=== PATIENT | female | born 1975 | race Caucasian/White ===

== ENCOUNTER 2017-09-23 20:11 | Emergency (ER) | payer BC ==
[~2017-09-23] VITALS: Ht 167.6 cm; Wt 56.2 kg
--- OUTSIDE RECORDS SUMMARY | 2017-09-23 20:23 | External Medical Summary Rpt | CCD ---
Author Author [employer] Organization [employer] Address Unknown Phone Unavailable Purpose Continuity of Care Document - through 2016
--- OUTSIDE RECORDS SUMMARY | 2017-09-23 20:23 | External Medical Summary Rpt | CCD ---
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
--- OUTSIDE RECORDS SUMMARY | 2017-09-23 20:23 | External Medical Summary Rpt | CCD ---
Author Author , YESSENIA CHEN Address Unknown Phone [email or web address] Purpose Continuity of Care Document - through 2016
--- OUTSIDE RECORDS SUMMARY | 2017-09-23 20:23 | External Medical Summary Rpt | CCD ---
Author Author , YESSENIA CHEN Address Unknown Phone [email or web address] Purpose Continuity of Care Document - through 2016
--- OUTSIDE RECORDS SUMMARY | 2017-09-23 20:23 | External Medical Summary Rpt | CCD ---
Demographics Preferred Language Tajik Marital Status Unknown Holiness Affiliation Unknown Race Unknown Ethnic Group Unknown Author Author , APRIL CHEN Address Unknown Phone Immunization No patient found.
[2017-09-23] MEDS ORDERED: LYRICA 100 MG100 MG PO (20:44)
[2017-09-23] MEDS ORDERED: ESCITALOPRAM 2020 MG PO (20:44)
[2017-09-23] MEDS ORDERED: KLONOPIN1 M2 PO (20:44)
[2017-09-23] MEDS ORDERED: ABILIFY20 MG PO (20:45)
[2017-09-23] MEDS ORDERED: PHENERGAN25 M3 PO (20:45)
[2017-09-23 20:58] LABS: HEMOGLOBIN 13.2 g/dL (12.2-16.2); LYMPH # 2.1 K/mm3 (0.7-4.5); LYMPH % 14.5 % (10-50.0)
--- NOTE | 2017-09-23 21:11 | Emergency Room Report ---
History of Present Illness Time Seen by 2038 Presenting Problem in Triage Pt arrived:Wheelchair Presenting Problem:C/O SYNCOPE THIS AM. FAMILY FOUND HERE PASSED OUT THIS AM IN BATHROOM AND HELPED HER TO BED WHERE SHE STATES SHE HAS BEEN ALL DAY. FOUND NEAR POOL OF VOMIT. 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 NO NEURO DEFICITS NOTED. NOW C/O RIGHT ARM/HAND NUMBNESS. 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 N Clinical Suspician of Infection? N Mental Status: 1 - Regular (Normal Baseline) Sepsis Risk:Possible Sepsis Risk Have you (or family members/close friends) recently traveled outside the [place]? N If Yes, where/when: Have you had exposure to infectious disease within the past month? N TB? Other? Specify: Source patient, RN notes reviewed, family, old records Exam Limitations no limitations Comment this wf is visiting with family and had syncopal episode this am as she was found on floor beside toilet with no known sz and she nor family able to give specifics - she has armando but no other neuro sx and reports having mood disorder and chronic back pain Cardiac Chest Pain Chest pain indicative of cardiac No Timing/Duration this evening Severity moderate ALLERGIES Coded Allergies: SEAFOOD (F) (09/23/17) iodine (09/23/17) acetaminophen (From LORTAB) (HEADACHE 09/23/17) hydrocodone (From LORTAB) (HEADACHE 09/23/17) morphine (HEADACHE 09/23/17) Home Medications Reported Medications Pregabalin (Lyrica 100Mg) 100 MG PO Q8 #90 Escitalopram Oxalate (Escitalopram 20MG) 20 MG PO DAILY #30 Clonazepam (Klonopin) 1 MG PO TID #90 PROMETHAZINE HCL (Phenergan 25MG Tab (Geq)) 25 MG PO TID #50 Aripiprazole (Abilify) 20 MG PO DAILY #30 History Medical History General CAD? No Angina: No FL: No Hypertension? No Hyperlipidemia? Yes CHF? No DVT? No PE? No COPD? No Asthma? No Anemia? No GERD? Yes Gastric ulcers? Yes GI Bleed? Yes Hernia? No Thyroid Problems? Yes Hypothyroidism? No CVA? No Seizures? No Diabetes? No Renal Insuffiency? No End Stage Renal Disease? No UTI? No Stones? No BPH? No GB Disease: No Nephritic Syndrome? No Asplenia? No Hepatitis? No Sickle Cell Disease? No Arthritis? No Migraines? No Cataracts? No Glaucoma? No MRSA? No HIV? No TB? No Anxiety? Yes Depression? Yes Cancer? No More? 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 Respiratory denies cough, denies shortness of breath, denies wheezing Cardiovascular see HPI, denies chest pain, denies palpitations, syncope Gastrointestinal denies abdominal pain, denies diarrhea, denies vomiting Genitourinary denies: dysuria, frequency, hesitancy, hematuria. Musculoskeletal denies back pain, denies joint pain, denies joint swelling, denies neck pain Skin denies rash Psychiatric/Neurological denies headache, denies seizure Physical Exam Vital Signs Vital Signs Date Time Temp Pulse Resp B/P Pulse O2 O2 Flow FiO2 Ox Delivery Rate 09/23 2324 85 20 97/59 90 09/237 99.9 96 20 105/82 93 09/23 2033 98.8 116 20 112/71 94 - WBC >12,000 or <4,000 or 10% bands? 2 or more SIRS Criteria Met? B/P:/ MAP:84 Creatinine >2.0? UA output<0.5ml/kg/hr for 2 hrs? Platelet count >100,000? Lactate >2.0mmol/1? INR >1.2 or PTT > than 60 sec? Evidence of Organ Dysfunction? Provider documented clinical suspician of infection? N Sepsis Criteria Count: 2 Sepsis Risk: Possible Sepsis Risk General Appearance no apparent distress Eye Exam - bilateral eye PERRL, bilateral eye EOMI Ear, Nose, Throat sinus pain/drainage, sl swelling and blister to rt facial area consistent with shearing effect but not shingles Neck non-tender Respiratory Status No: respiratory distress. Lung Sounds bilateral: lungs clear. 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 No Results/Orders Laboratory Tests 09/23/172049: Creatine Kinase 3464 H, CK-MB (CK-2) Rel Index 1.0, CK and CKMB Interp 36.3 *H, Troponin I < 0.02 09/23/172049: Sodium 138, Potassium 3.5, Chloride 101, Carbon Dioxide 30, BUN 13, Creatinine 1.0, Estimated Creat Clear 64, Estimated GFR (MDRD) 61, Glucose 115 H, Calcium 9.1, Total Bilirubin 0.3, AST 78 H, ALT 44, Alkaline Phosphatase 108, Total Protein 7.1, Albumin 3.7, Globulin 3.4 H, Albumin/Globulin Ratio 1.1, WBC 14.3 H, RBC 4.56, Hgb 13.2, Hct 39.1, MCV 85.8, RDW 13.4, Plt Count 201, MPV 7.3 L, Gran % 76.2, Gran # 10.9 H, Lymphocytes % 14.5, Monocytes % 7.6, Eosinophils % 1.5, Basophils % 0.2, Lymphocytes # 2.1, Monocytes # 1.1 H, Eosinophils # 0.2, Basophils # 0.0, PUBS MCHC 33.8, MCH 29.0 Current Medication Orders Sig/Luciano Start time Last Medication Dose Route Stop Time Status Admin Sodium Chloride 1,000 ML .Q1H1M 09/23 2145 DC 09/23 IV 09/23 Sodium Chloride 10 ML PRN PRN 09/23 2145 AC IV 11/11 2132 Sodium Chloride 1,000 ML .STK-MED ONE 09/23 2143 DC IV Sodium Chloride 10 ML PRN PRN 09/23 2100 AC IV 09/24 2047 Orders Procedure Date/time Status DIET-NOTHING BY MOUTH 09/24 B Active DRUG ABUSE SCREEN (TRIAGE) 09/[address] SINUS (MAX-FACIAL W/O CONT) 09/[address] SCAN REQ 09/23 2152 Complete URINALYSIS/COMPLETE 09/[address] SCAN REQ 09/23 2111 Active 12 LEAD EKG-BESSON (INITIAL) 09/23 2052 Active ELECTROCARDIOGRAM REQUEST 09/23 2052 Active CARDIAC ENZYMES 09/[address] CERVICAL SPINE W/O CONT. 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 of ischemic chgs XRAY/CT/US XRAY/CT/US CT head, C-spine, sinus CT interpretation by discussed w/radiologist Time results known: 2352 CT Results no fracture seen, abnormal (sinusitis) Departure Departure Time of Disposition 2343 Disposition Against Medical Advice Clinical Impression Primary Impression: Syncope Qualifiers: Syncope type: unspecified Qualified Code: R55 - Syncope and collapse Secondary Impressions: Rhabdomyolysis Qualifiers: Rhabdomyolysis type: traumatic Encounter type: initial encounter Qualified Code: T79.6XXA - Traumatic ischemia of muscle, initial encounter Sinusitis Qualifiers: Sinusitis location: pansinusitis Chronicity: unspecified Qualified Code: J32.4 - Chronic pansinusitis Condition STABLE Patient Instructions DI for Syncope in Adults (Fainting) Additional Instructions fluids and use meds and see pcp for follow up and also see ent for sinusitis disease Discharge Counseling Counseled pt/family regarding diagnosis, test results, medications/RX, follow up needs Prescriptions Current Visit Scripts CEPHALEXIN (Keflex 500MG Capsule) 500 MG PO Q8H #30 CAP ED Critical Care Critical Care No Comments discussed with pt and family but pt refused admit at [id number]
--- NOTE | 2017-09-23 22:58 | RADIOLOGY REPORT PS360 ---
CT HEAD W/O CONTRAST HISTORY: SYNCOPAL EPISODE WITH FALL ORDERING PHYSICIAN: Karely Lowe MD PATIENT AGE: 42 years COMPARISON: None TECHNIQUE: Axial images obtained without contrast. Brain and bone windows reviewed. FINDINGS: No midline shift, mass effect, intracranial hemorrhage, hydrocephalus, or extra-axial fluid collection is evident. The calvarium has an unremarkable appearance. No mastoid effusion. Air-fluid levels are present in the maxillary sinuses and there is moderate mucosal thickening of the ethmoid sinuses and near complete opacification of the left frontal sinus.. IMPRESSION: 1. No acute intracranial findings. 2. Sinusitis.
[2017-09-23 23:45] VITALS: BP 97/59
[2017-09-23] MEDS ORDERED: KEFLEX 500MG.500 MG PO (23:47)
--- NOTE | 2017-09-24 05:39 | RADIOLOGY REPORT PS360 ---
CT CERVICAL SPINE W/O CONT INDICATION: Neck pain, right arm pain, radicular pain SYNCOPAL EPISODE WITH FALL ORDERING PHYSICIAN: Karely Lowe MD PATIENT AGE: 42 years COMPARISON: None TECHNIQUE: Axial images are obtained without contrast. Sagittal and coronal reformatted images are reviewed as well. FINDINGS: No fracture or subluxation. There is straightening of the cervical lordosis which may be due to patient positioning or muscle spasm. There is incomplete fusion of the posterior arch of C1 as a normal variant. There is mild degenerative disc disease at C5-C6 with slight decrease in the disc space and minimal osteosclerosis of the endplates. No bony canal stenosis Biapical scarring is present in the lungs and there is gas in the esophagus which is nonspecific but could be seen with reflux or distal esophageal obstruction. Air-fluid levels are present in the maxillary sinuses. A small nodule is present in the left lobe of the thyroid gland with a small calcification. The nodule measures approximately 4 mm. IMPRESSION: 1. No acute fracture. 2. Straightening of cervical lordosis which may be due to patient positioning or muscle spasm with mild cervical spondylosis 3. Maxillary sinusitis
--- NOTE | 2017-09-24 05:59 | RADIOLOGY REPORT PS360 ---
CT SINUS (MAX-FACIAL W/O CONT) CLINICAL INDICATION: Facial pain, right-sided facial pain FACIAL ORDERING PHYSICIAN: Karely Lowe MD PATIENT AGE: 42 years COMPARISON: None TECHNIQUE:Axial, sagittal, and coronal images are generated and reviewed without contrast FINDINGS: There is near complete opacification of the left aspect of the frontal sinus and moderate opacification of bilateral ethmoid air cells. Bilateral air-fluid levels are present within the maxillary sinuses. No obvious fracture or dislocation. The sphenoid sinuses have minimal mucosal thickening of the left anteriorly. There is moderate rightward nasal septal deviation. The ostiomeatal units are occluded on both sides. There is some mild soft tissue swelling in the right zygomatic area. The orbits are unremarkable. 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 IMPRESSION: 1. No acute fracture. 2. Mild right facial soft tissue swelling 3. Paranasal sinusitis with air-fluid levels in the maxillary sinuses and near complete opacification of the frontal sinus on the left with obstruction of the ostiomeatal units 4. TMJ arthropathy
== END 2017-09-23 23:56 | disposition left against medical advice (07) ==
LOC: UTC 20:11 → ER 20:22 → UTC 20:22 → ER 23:56
PROVIDERS: Emergency Medicine
DX: R55 Syncope and collapse (principal); T79.6XXA Traumatic ischemia of muscle, initial encounter; J32.4 Chronic pansinusitis; F17.210 Nicotine dependence, cigarettes, uncomplicated; K21.9 Gastro-esophageal reflux disease without esophagitis; E78.5 Hyperlipidemia, unspecified; Z88.6 Allergy status to analgesic agent